=== PATIENT | female | born 1985 | race Native Hawaiian/Other Pacific Islander ===

== ENCOUNTER 2016-10-17 18:00 | Observation (INO) | payer MEDICAID, OTHER ==
--- NOTE | 2016-10-17 18:46 | C.PDOC ---
History Of Present Illness 30 y/o female presents to the ED with complains of possible seizure. Pt with history or seizure disorder and schizophrenia. Pt was on bus going home, told person sitting next to her that she might have a seizure. The e business manager also reports she may have had a seizure but is unsure. Pt doesn't know if she had a seizure. Denies incontinence, fever, URI symptoms, vomiting, change in appetite , or any other complaints. Denies post ictal symptoms. Pt currently takes trileptal and phenobarbital and is compliant with medication. According to her mother patient recalled being on the bus and then was in the ED but does not remember the transport. She is awake and oriented on exam. Time Seen by Provider: 10/17/16 18:33 Chief Complaint (Nursing): Seizure History Per: Patient History/Exam Limitations: no limitations Recent Seizure Activity Began: Unknown Length Of Seizures (Duration): Unknown Post-ictal Period: No Recent travel outside of the [place]: No Past Medical History Reviewed: Historical Data, Nursing Documentation, Vital Signs Vital Signs: Last Vital Signs Temp 98 F 10/17/16 18:11 Pulse 83 10/17/16 18:11 Resp 16 10/17/16 18:11 BP 129/81 10/17/16 18:11 Pulse Ox 98 10/17/16 18:50 - Medical History PMH: Seizures Family History: States: Unknown Family Hx - Social History Hx Alcohol Use: No Hx Substance Use: No Review Of Systems Except As Marked, All Systems Reviewed And Found Negative. Constitutional: Negative for: Fever Cardiovascular: Negative for: Chest Pain Respiratory: Negative for: Cough, Shortness of Breath Gastrointestinal: Negative for: Vomiting, Abdominal Pain Neurological: Negative for: Headache Physical Exam - Physical Exam Appears: Non-toxic, No Acute Distress Skin: Warm, Dry, No Rash Head: Atraumatic, Normacephalic Eye(s): bilateral: PERRL Nose: Normal Oral Mucosa: Moist Tongue: Normal Appearing, No Bite Lips: Normal Appearing Neck: Normal ROM, Supple Chest: Symmetrical Cardiovascular: Rhythm Regular, No Murmur Respiratory: Normal Breath Sounds, No Rales, No Rhonchi, No Wheezing Gastrointestinal/Abdominal: Normal Exam, Soft, No Tenderness Extremity: Bilateral: Atraumatic Neurological/Psych: Oriented x3, Normal Speech, Normal Cognition, Normal Cranial Nerves, Normal Motor, Normal Sensation ED Course And Treatment - Laboratory Results Result Diagrams: 10/17/16 19:06 10/17/16 19:06 Lab Interpretation: No Acute Changes O2 Sat by Pulse Oximetry: 98 (on room air) Pulse Ox Interpretation: Normal Progress Note: 8:45 Patient was in the bathroom with her mother when she had another siezure. Generalized tonic/clonic muscle twitching with altered mentation and frothing at the mouth.Lasted 30 seconds with patient immediately awake. Still slightly twitching. - Physician Consult Information Time Consulting Physician Contacted: 21:03 Physician Contacted: Robin Toure Outcome Of Conversation: Patient will be admitted for evaluation of recurrent seizure. Disposition - Disposition Disposition: HOSPITALIZED Disposition Time: 21:04 Condition: STABLE - POA Present On Arrival: None - Clinical Impression Clinical Impression: Seizure disorder - Scribe Statement The provider has reviewed the documentation as recorded by the Jr Rob Provider Attestation: All medical record entries made by the Jr were at my direction and personally dictated by me. I have reviewed the chart and agree that the record accurately reflects my personal performance of the history, physical exam, medical decision making, and the department course for this patient. I have also personally directed, reviewed, and agree with the discharge instructions and disposition.
[2016-10-17 19:17] LABS: BASO # 0.1 K/uL (0.0-0.2); BASO % 0.8 % (0.0-2.0); EOS % 0.7 % (0.0-4.0); HEMATOCRIT 41.4 % (34.0-47.0); LYMPH # 1.8 K/uL (1.0-4.3); LYMPH % 26.3 % (20.0-40.0); MEAN CELL VOLUME 88.8 fL (81.0-99.0); MEAN CORPUSCULAR HEMOGLOBIN 30.4 pg (27.0-31.0); MEAN CORPUSCULAR HGB CONC 34.3 g/dL (33.0-37.0); MONO # 0.5 K/uL (0.0-0.8); MONO % 6.8 % (0.0-10.0); RED CELL DISTRIBUTION WIDTH 12.1 % (11.5-14.5); WHITE BLOOD COUNT 6.8 K/uL (4.8-10.8)
[2016-10-17 19:27] LABS: CHLORIDE 97 mmol/L (98-107)
[2016-10-17 19:28] LABS: POTASSIUM 4.8 mmol/L (3.6-5.2); SODIUM 134 mmol/L (132-148)
[2016-10-17 19:30] LABS: ALB/GLOB RATIO 1.3 (1.0-2.1); ALKALINE PHOSPHATASE 71 U/L (38-126); ALT/SGPT 29 U/L (9-52); AST/SGOT 35 U/L (14-36); BILIRUBIN,TOTAL 0.3 mg/dL (0.2-1.3); BLOOD UREA NITROGEN 15 mg/dL (7-17); CARBON DIOXIDE 25 mmol/L (22-30); GFR AFRICAN-AMERICAN > 60
[2016-10-17 19:31] LABS: CALCIUM 8.9 mg/dl (8.6-10.4); GLUCOSE,RANDOM 93 mg/dL (65-105)
--- NOTE | 2016-10-17 21:44 | CP.PCM.HP ---
<Osiris Lorna LOZANO - Last Filed: 10/17/16 22:14> History of Present Illness - History of Present Illness History of Present Illness: Patient is a 30 year old female with past medical history of schizophrenia and epilepsy who presents to the ER s/p witnessed seizure. Patient's mother provides history and states that the patient was on the adult day care bus when she experiences her usual pre-seizure aura and informed the business services assistant she was going to have a seizure. Mother states that patient's seizures usually involve her becoming very stiff, occasional tongue biting, but that the patient does not normally have bowel or bladder incontinence. For this particular seizure, the patient did not bite her tongue. Patient had another seizure in the ER where again she did not bite her tongue but her whole body became very stiff. Patient was in the bathroom with her mother at the time of that seizure. Patient's mother helped patient to floor and ER staff transferred patient to stretcher where she had seizure activity described as tonic clonic with foaming at the mouth. Patient' mother states they are very compliant with medication. Patient formerly had 16 seizures per month but two months ago the patient's phenobarbital was increased to twice daily dosing instead of once per day. Since that medication change, the patient has only had 3-5 seizures per month. Patient's mother states that usually the seizures occur at home and she does not go to the hospital. Patient does have history of falls and injuries associated with the seizures. Patient currently alert and denies headache, dizziness, nausea, vomiting. PMD: [facility] specialist Dr. 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, history normal MRI per mother Meds: vimpat 200mg BID (non-formulary here-mother will bring in AM as pt had evening dose already), seroquel 200mg HS, phenobarbital 60mg BID, trileptal 600mg AM, trileptal 300mg PM, Nuedexta in AM PSHx: D&C for termination of while patient was on depakote Famhx: maternal grandmother with diabetes, maternal grandfather with pulmonary problem SocialHx: denies tobacco, alcohol, drugs, lives with mother, attends adult day care Present on Admission - Present on Admission Any Indicators Present on Admission: No Review of Systems - Constitutional Constitutional: absent: Chills, Fever, Weakness - EENT Nose/Mouth/Throat: absent: Sore Throat - Cardiovascular Cardiovascular: absent: Chest Pain, Chest Pain at Rest, Dyspnea - Respiratory Respiratory: absent: Cough, Dyspnea - Gastrointestinal Gastrointestinal: absent: Abdominal Pain, Constipation, Diarrhea, Fecal Incontinence, Nausea, Vomiting - Genitourinary Genitourinary: absent: Dysuria, Urinary Incontinence - Reproductive: Female Additional comments: LMP 10/03/16 - Musculoskeletal Musculoskeletal: absent: Back Pain - Integumentary Integumentary: absent: Rash - Neurological Neurological: Convulsions. absent: Dizziness, Headaches Past Patient History - Past Social History Smoking Status: Never Smoked - NEUROLOGICAL Hx Seizures: Yes - PSYCHIATRIC Hx Substance Use: No - ANESTHESIA Hx Anesthesia: No Meds Allergies/Adverse Reactions: Allergies Allergy/AdvReac Type Severity Reaction Status Date / Time No Known Allergies Allergy Verified 10/17/16 18:16 Physical Exam - Constitutional Appears: Non-toxic, No Acute Distress - Head Exam Head Exam: NORMOCEPHALIC Additional comments: healed scars on forehead from old injuries - Eye Exam Eye Exam: EOMI, Normal appearance. absent: Nystagmus - ENT Exam ENT Exam: Mucous Membranes Moist Additional comments: no tongue lesions - Neck Exam Neck exam: Negative for: Lymphadenopathy - Respiratory Exam Respiratory Exam: Clear to Auscultation Bilateral. absent: Rales, Rhonchi, Wheezes - Cardiovascular Exam Cardiovascular Exam: +S1, +S2 - GI/Abdominal Exam GI & Abdominal Exam: Normal Bowel Sounds, Soft. absent: Distended, Firm, Guarding, Tenderness - Extremities Exam Extremities exam: Positive for: normal inspection. Negative for: pedal edema - Neurological Exam Neurological exam: Alert, CN II-XII Intact - Skin Skin Exam: Normal Color, Warm Results - Vital Signs Recent Vital Signs: Last Vital Signs Temp 98 F 10/17/16 18:11 Pulse 83 10/17/16 18:11 Resp 16 10/17/16 18:11 BP 129/81 10/17/16 18:11 Pulse Ox 98 10/17/16 21:05 - Labs Result Diagrams: 10/17/16 19:06 10/17/16 19:06 Assessment & Plan (1) Seizure disorder Assessment and Plan: Patient to continue home medications: Vimpat 200mg BID Phenobarbital 60mg BID Trileptal 600mg QAM Trileptal 300mg QPM seizure precautions F/U phenobarbital level Status: Acute (2) Schizophrenia Assessment and Plan: Seroquel 200mg HS Nuedexta 20/10 daily Status: Acute (3) Prophylactic measure Assessment and Plan: SCDs seizure precautions pad bed to prevent seizure-related injury monitor on telemetry for unusual activity to indicate seizure Patient seen and examined with attending physician, plan as per attending physician Status: Acute <Robin Toure P - Last Filed: 10/21/16 20:24> Results - Vital Signs Recent Vital Signs: Last Vital Signs Temp 97.9 F 10/19/16 13:00 Pulse 71 10/19/16 13:00 Resp 18 10/19/16 13:00 BP 118/76 10/19/16 13:00 Pulse Ox 96 10/19/16 13:00 - Labs Result Diagrams: 10/19/16 11:04 10/19/16 11:04 Attending/Attestation - Attestation I have personally seen and examined this patient.: Yes I have fully participated in the care of the patient.: Yes I have reviewed all pertinent clinical information: Yes
[2016-10-18 07:32] LABS: BASO % 0.7 % (0.0-2.0); EOS # 0.1 K/uL (0.0-0.7); EOS % 0.8 % (0.0-4.0); LYMPH # 2.1 K/uL (1.0-4.3); LYMPH % 33.5 % (20.0-40.0); MEAN CELL VOLUME 89.1 fL (81.0-99.0); MEAN CORPUSCULAR HEMOGLOBIN 29.6 pg (27.0-31.0); MEAN CORPUSCULAR HGB CONC 33.2 g/dL (33.0-37.0); MEAN PLATELET VOLUME 7.2 fL (7.2-11.7); MONO # 0.5 K/uL (0.0-0.8); MONO % 7.6 % (0.0-10.0); NRBC % 0.2 % (0.0-2.0); RED CELL DISTRIBUTION WIDTH 12.3 % (11.5-14.5); WHITE BLOOD COUNT 6.4 K/uL (4.8-10.8)
[2016-10-18 07:34] LABS: CHLORIDE 100 mmol/L (98-107); POTASSIUM 3.8 mmol/L (3.6-5.2); SODIUM 136 mmol/L (132-148)
[2016-10-18 07:36] LABS: GFR AFRICAN-AMERICAN > 60
[2016-10-18 07:37] LABS: ALB/GLOB RATIO 1.3 (1.0-2.1); ALKALINE PHOSPHATASE 72 U/L (38-126); ALT/SGPT 18 U/L (9-52); AST/SGOT 20 U/L (14-36); BILIRUBIN,TOTAL 0.5 mg/dL (0.2-1.3); BLOOD UREA NITROGEN 13 mg/dL (7-17); CALCIUM 8.4 mg/dl (8.6-10.4); CARBON DIOXIDE 24 mmol/L (22-30); GLUCOSE,RANDOM 85 mg/dL (65-105); TOTAL PROTEIN 7.5 g/dL (6.3-8.3)
[2016-10-18] MEDS ORDERED: Patient's Own Medication - Tablet/Capusle PO SCH (09:00)
[2016-10-18] MEDS ORDERED: NUEDEXTA PO SCH (10:00)
--- NOTE | 2016-10-18 14:04 | CP.PCM.PN ---
<Henry Britton - Last Filed: 10/18/16 14:41> Subjective - Date & Time of Evaluation Date of Evaluation: 10/18/16 Time of Evaluation: 07:00 - Subjective Subjective: PGY-1 Medicine Progress Note for Dr. clayton Patient seen and examined at bedside. This morning, mother stated patient had seizure in bed. Patient was AAO x 3 with no post-ictal state upon interview/ exam. Patient stated that she has had seizure daily for last few days. Patient sees Epileptologist, Dr. Cifuentes, as outpaitent ([phone]). Patient also complaining of infiltrated IV, nursing aware. Denied fever/chills, post-ictal symptoms, tongue lesions, new skin lesions, cp, sob, palpitations, abd pain, n/v /d. Objective - Vital Signs/Intake and Output Vital Signs (last 24 hours): Temp Pulse Resp BP Pulse Ox 98.9 F 68 18 120/77 97 10/18/16 10:05 10/18/16 10:05 10/18/16 10:05 10/18/16 10:05 10/18/16 10:05 - Medications Medications: Current Medications Home Med (Nuedexta 20-10 Mg Capsule) 1 tab PO DAILY [facility] Home Med (Patient's Own Medication) 1 tab PO Q12H [facility] Lorazepam (Ativan) 2 mg IVP Q6H PRN PRN Reason: Seizure activity Oxcarbazepine (Trileptal) 300 mg PO HS [facility] Oxcarbazepine (Trileptal) 600 mg PO DAILY [facility] Last Admin: 10/18/16 10:48 Dose: 600 mg Phenobarbital (Phenobarbital Tab) 64.8 mg PO BID [facility] Last Admin: 10/18/16 10:48 Dose: 64.8 mg Quetiapine Fumarate (Seroquel) 200 mg PO HS [facility] - Labs Labs: 10/18/16 07:04 10/18/16 07:04 - Constitutional Appears: No Acute Distress - Head Exam Head Exam: NORMOCEPHALIC Additional comments: healed scars on forehead from old injuries - Eye Exam Eye Exam: EOMI, Normal appearance Pupil Exam: PERRL - ENT Exam ENT Exam: Mucous Membranes Moist, Normal Exam - Neck Exam Neck Exam: Normal Inspection - Respiratory Exam Respiratory Exam: Clear to Ausculation Bilateral, NORMAL BREATHING PATTERN - Cardiovascular Exam Cardiovascular Exam: REGULAR RHYTHM, +S1, +S2 - GI/Abdominal Exam GI & Abdominal Exam: Soft, Normal Bowel Sounds. absent: Tenderness - Extremities Exam Extremities Exam: Normal Capillary Refill - Back Exam Back Exam: absent: CVA tenderness (L), CVA tenderness (R) - Neurological Exam Neurological Exam: Alert, Awake, CN II-XII Intact, Oriented x3 Neuro motor strength exam: Left Upper Extremity: 5, Right Upper Extremity: 5, Left Lower Extremity: 5, Right Lower Extremity: 5 - Psychiatric Exam Psychiatric exam: Normal Affect, Normal Mood - Skin Skin Exam: Dry, Intact, Warm Assessment and Plan - Assessment and Plan (Free Text) Plan: (1) Seizure disorder Assessment and Plan: Ativan 2 mg IVP Q6H PRN Neuro consult, Dr. Cheung, help appreciated (requested by family) Vimpat 200 mg PO BID Phenobarbital 60 mg PO BID Trileptal 600 mg PO QAM Trileptal 300mg PO QPM seizure precautions F/U phenobarbital level (2) Schizophrenia Assessment and Plan: Seroquel 200 mg PO HS Nuedexta 20/10 mg PO daily (3) Prophylactic measure Assessment and Plan: SCDs seizure precautions pad bed to prevent seizure-related injury monitor on telemetry for unusual activity to indicate seizure Regular diet <Robin Clayton - Last Filed: 11/21/16 14:50> Objective - Vital Signs/Intake and Output Vital Signs (last 24 hours): Temp Pulse Resp BP Pulse Ox 97.9 F 71 18 118/76 96 10/19/16 13:00 10/19/16 13:00 10/19/16 13:00 10/19/16 13:00 10/19/16 13:00 - Labs Labs: 10/19/16 11:04 10/19/16 11:04 Attending/Attestation - Attestation I have personally seen and examined this patient.: Yes I have fully participated in the care of the patient.: Yes I have reviewed all pertinent clinical information, including history, physical exam and plan: Yes Notes (Text): Patient seen and examined with the resident. Agree with the resident's evaluation, assessment and plan. Seizure disorder Schizophrenia
[2016-10-19 09:00] VITALS: O2SAT 96
[2016-10-19 11:12] LABS: BASO % 0.7 % (0.0-2.0); EOS % 0.5 % (0.0-4.0); HEMATOCRIT 44.8 % (34.0-47.0); LYMPH % 36.2 % (20.0-40.0); MEAN CORPUSCULAR HEMOGLOBIN 29.9 pg (27.0-31.0); MEAN CORPUSCULAR HGB CONC 33.6 g/dL (33.0-37.0); MONO # 0.4 K/uL (0.0-0.8); NRBC % 0.1 % (0.0-2.0); RED CELL DISTRIBUTION WIDTH 12.1 % (11.5-14.5); WHITE BLOOD COUNT 5.6 K/uL (4.8-10.8)
[2016-10-19 11:27] LABS: CHLORIDE 101 mmol/L (98-107)
[2016-10-19 11:28] LABS: POTASSIUM 4.1 mmol/L (3.6-5.2); SODIUM 138 mmol/L (132-148)
[2016-10-19 11:30] LABS: ALB/GLOB RATIO 1.2 (1.0-2.1); ALKALINE PHOSPHATASE 75 U/L (38-126); AST/SGOT 24 U/L (14-36); BILIRUBIN,TOTAL 0.5 mg/dL (0.2-1.3); BLOOD UREA NITROGEN 16 mg/dL (7-17); CARBON DIOXIDE 26 mmol/L (22-30); GFR AFRICAN-AMERICAN > 60
[2016-10-19 11:31] LABS: ALT/SGPT 21 U/L (9-52); CALCIUM 8.8 mg/dl (8.6-10.4); GLUCOSE,RANDOM 85 mg/dL (65-105)
[2016-10-19] MEDS ORDERED: [UNRECOGNIZED DRUG - OTHER] PO SCH (13:00)
[2016-10-19] MEDS ORDERED: DEXTROMETHORPHAN PO SCH (13:00)
[2016-10-19] MEDS ORDERED: QUINIDINE PO SCH (13:00)
[2016-10-19] MEDS ORDERED: VIMPAT 200 MG PO SCH ×2 (13:00→18:00)
[2016-10-19 13:30] VITALS: BP 118/76; PULSE 71; RESP 18; TEMP 97.9
--- NOTE | 2016-10-19 13:38 | CP.PCM.DIS ---
<Henry Britton - Last Filed: 12/05/16 07:29> Provider - Provider Date of Admission: 10/17/16 21:05 Attending physician: Robin Toure MD Time Spent in preparation of Discharge (in minutes): 40 Diagnosis - Discharge Diagnosis (1) Seizure disorder Status: Chronic (2) Schizophrenia Status: Chronic Hospital Course - Lab Results Lab Results: Most Recent Lab Values WBC 5.6 K/uL (4.8-10.8) 10/19/16 11:04 RBC 5.04 Mil/uL (3.80-5.20) 10/19/16 11:04 Hgb 15.1 g/dL (11.0-16.0) 10/19/16 11:04 Hct 44.8 % (34.0-47.0) 10/19/16 11:04 MCV 89.0 fL (81.0-99.0) 10/19/16 11:04 MCH 29.9 pg (27.0-31.0) 10/19/16 11:04 MCHC 33.6 g/dL (33.0-37.0) 10/19/16 11:04 RDW 12.1 % (11.5-14.5) 10/19/16 11:04 Plt Count 309 K/uL (130-400) 10/19/16 11:04 MPV 7.0 fL (7.2-11.7) L 10/19/16 11:04 Neut % (Auto) 55.6 % (50.0-75.0) 10/19/16 11:04 Lymph % (Auto) 36.2 % (20.0-40.0) 10/19/16 11:04 Morrison % (Auto) 7.0 % (0.0-10.0) 10/19/16 11:04 Eos % (Auto) 0.5 % (0.0-4.0) 10/19/16 11:04 Baso % (Auto) 0.7 % (0.0-2.0) 10/19/16 11:04 Neut # 3.1 K/uL (1.8-7.0) 10/19/16 11:04 Lymph # 2.0 K/uL (1.0-4.3) 10/19/16 11:04 Morrison # 0.4 K/uL (0.0-0.8) 10/19/16 11:04 Eos # 0.0 K/uL (0.0-0.7) 10/19/16 11:04 Baso # 0.0 K/uL (0.0-0.2) 10/19/16 11:04 Sodium 138 mmol/L (132-148) 10/19/16 11:04 Potassium 4.1 mmol/L (3.6-5.2) 10/19/16 11:04 Chloride 101 mmol/L (98-107) 10/19/16 11:04 Carbon Dioxide 26 mmol/L (22-30) 10/19/16 11:04 Anion Gap 15 (10-20) 10/19/16 11:04 BUN 16 mg/dL (7-17) 10/19/16 11:04 Creatinine 0.7 MG/DL (0.7-1.2) 10/19/16 11:04 Est GFR ( Amer) > 60 10/19/16 11:04 Est GFR (Non-Af Amer) > 60 10/19/16 11:04 Random Glucose 85 mg/dL (65-105) 10/19/16 11:04 Calcium 8.8 mg/dl (8.6-10.4) 10/19/16 11:04 Total Bilirubin 0.5 mg/dL (0.2-1.3) 10/19/16 11:04 AST 24 U/L (14-36) 10/19/16 11:04 ALT 21 U/L (9-52) 10/19/16 11:04 Alkaline Phosphatase 75 U/L (38-126) 10/19/16 11:04 Total Protein 8.0 g/dL (6.3-8.3) 10/19/16 11:04 Albumin 4.4 g/dL (3.5-5.0) 10/19/16 11:04 Globulin 3.6 gm/dL (2.2-3.9) 10/19/16 11:04 Albumin/Globulin Ratio 1.2 (1.0-2.1) 10/19/16 11:04 Phenobarbital 20.5 mg/L (15.0-40.0) 10/17/16 19:06 - Hospital Course Hospital Course: 30 year old female with past medical history of schizophrenia and epilepsy who presents to the ER s/p witnessed seizure. Patient's mother provides history and states that the patient was on the adult day care bus when she experiences her usual pre-seizure aura and informed the bus driver/monitor she was going to have a seizure. Mother states that patient's seizures usually involve her becoming very stiff, occasional tongue biting, but that the patient does not normally have bowel or bladder incontinence. For this particular seizure, the patient did not bite her tongue. Patient had another seizure in the ER where again she did not bite her tongue but her whole body became very stiff. Patient was in the bathroom with her mother at the time of that seizure. Patient's mother helped patient to floor and ER staff transferred patient to stretcher where she had seizure activity described as tonic clonic with foaming at the mouth. Patient' mother states they are very compliant with medication. Patient formerly had 16 seizures per month but two months ago the patient's phenobarbital was increased to twice daily dosing instead of once per day. Since that medication change, the patient has only had 3-5 seizures per month. Patient's mother states that usually the seizures occur at home and she does not go to the hospital. Patient does have history of falls and injuries associated with the seizures. Patient currently alert and denies headache, dizziness, nausea, vomiting. Patient was admitted to telemetry for seizures. Patient's home medications was restarted and placed on seizure precautions. The next day, Neurology was consulted and Ativan was ordered as needed. The patient's mother was requesting the patient to be disordered after asking for a neurology consult. Patient was kept one more day. Patient did not display any seizure activity in the hospital. She was then deemed medically stable for discharge by Dr. Ambrocio. Patient was instructed to continue home medications as previously prescribed and follow up with her Epileptologist, Dr. Cifuentes, as outpaitent. (This is a summary of the hospital course. Please refer to EMR for more details. ) Discharge Exam - Head Exam Head Exam: ATRAUMATIC, NORMOCEPHALIC - Eye Exam Eye Exam: EOMI, Normal appearance Pupil Exam: PERRL - ENT Exam ENT Exam: Mucous Membranes Moist - Respiratory Exam Respiratory Exam: Clear to PA & Lateral, NORMAL BREATHING PATTERN - Cardiovascular Exam Cardiovascular Exam: REGULAR RHYTHM, +S1, +S2 - GI/Abdominal Exam GI & Abdominal Exam: Normal Bowel Sounds, Soft. absent: Tenderness - Extremities Exam Extremities exam: normal capillary refill, pedal pulses present - Back Exam Back exam: absent: CVA tenderness (L), CVA tenderness (R) - Neurological Exam Neurological exam: Alert, CN II-XII Intact, Oriented x3 - Psychiatric Exam Psychiatric exam: Normal Affect, Normal Mood - Skin Skin Exam: Dry, Intact, Normal Color, Warm Discharge Plan - Follow Up Plan Condition: STABLE Disposition: HOME/ ROUTINE Instructions: Recurrent Seizures in Adults (DC) Additional Instructions: Patient medically stable for discharge by Dr. Reyes. Patient is to resume home medications as previously prescribed. Patient is to follow up with PMD and Neurologist (Dr. Cifuentes) within 2-3 days of discharge. Patient may resume physical activity as tolerated. Please return to ED if symptoms persist or condition worsens. All instructions stated above were discussed with patient in detail. She verbalized understanding and agreement. <Robin Ambrocio - Last Filed: 12/05/16 10:53> Provider - Provider Date of Admission: 10/17/16 21:05 Attending physician: Robin Toure MD Hospital Course - Lab Results Lab Results: Most Recent Lab Values WBC 5.6 K/uL (4.8-10.8) 10/19/16 11:04 RBC 5.04 Mil/uL (3.80-5.20) 10/19/16 11:04 Hgb 15.1 g/dL (11.0-16.0) 10/19/16 11:04 Hct 44.8 % (34.0-47.0) 10/19/16 11:04 MCV 89.0 fL (81.0-99.0) 10/19/16 11:04 MCH 29.9 pg (27.0-31.0) 10/19/16 11:04 MCHC 33.6 g/dL (33.0-37.0) 10/19/16 11:04 RDW 12.1 % (11.5-14.5) 10/19/16 11:04 Plt Count 309 K/uL (130-400) 10/19/16 11:04 MPV 7.0 fL (7.2-11.7) L 10/19/16 11:04 Neut % (Auto) 55.6 % (50.0-75.0) 10/19/16 11:04 Lymph % (Auto) 36.2 % (20.0-40.0) 10/19/16 11:04 Morrison % (Auto) 7.0 % (0.0-10.0) 10/19/16 11:04 Eos % (Auto) 0.5 % (0.0-4.0) 10/19/16 11:04 Baso % (Auto) 0.7 % (0.0-2.0) 10/19/16 11:04 Neut # 3.1 K/uL (1.8-7.0) 10/19/16 11:04 Lymph # 2.0 K/uL (1.0-4.3) 10/19/16 11:04 Morrison # 0.4 K/uL (0.0-0.8) 10/19/16 11:04 Eos # 0.0 K/uL (0.0-0.7) 10/19/16 11:04 Baso # 0.0 K/uL (0.0-0.2) 10/19/16 11:04 Sodium 138 mmol/L (132-148) 10/19/16 11:04 Potassium 4.1 mmol/L (3.6-5.2) 10/19/16 11:04 Chloride 101 mmol/L (98-107) 10/19/16 11:04 Carbon Dioxide 26 mmol/L (22-30) 10/19/16 11:04 Anion Gap 15 (10-20) 10/19/16 11:04 BUN 16 mg/dL (7-17) 10/19/16 11:04 Creatinine 0.7 MG/DL (0.7-1.2) 10/19/16 11:04 Est GFR ( Amer) > 60 10/19/16 11:04 Est GFR (Non-Af Amer) > 60 10/19/16 11:04 Random Glucose 85 mg/dL (65-105) 10/19/16 11:04 Calcium 8.8 mg/dl (8.6-10.4) 10/19/16 11:04 Total Bilirubin 0.5 mg/dL (0.2-1.3) 10/19/16 11:04 AST 24 U/L (14-36) 10/19/16 11:04 ALT 21 U/L (9-52) 10/19/16 11:04 Alkaline Phosphatase 75 U/L (38-126) 10/19/16 11:04 Total Protein 8.0 g/dL (6.3-8.3) 10/19/16 11:04 Albumin 4.4 g/dL (3.5-5.0) 10/19/16 11:04 Globulin 3.6 gm/dL (2.2-3.9) 10/19/16 11:04 Albumin/Globulin Ratio 1.2 (1.0-2.1) 10/19/16 11:04 Phenobarbital 20.5 mg/L (15.0-40.0) 10/17/16 19:06 Attending/Attestation - Attestation I have personally seen and examined this patient.: Yes I have fully participated in the care of the patient.: Yes I have reviewed all pertinent clinical information, including history, physical exam and plan: Yes Notes (Text): Patient was admitted to telemetry for seizures. Patient's home medications was restarted and placed on seizure precautions. The next day, Neurology was consulted and Ativan was ordered as needed. The patient's mother was requesting the patient to be discharged after asking for a neurology consult. Patient was kept one more day. Patient did not display any seizure activity in the hospital. She was then deemed medically stable. Patient was instructed to continue home medications as previously prescribed and follow up with her Epileptologist, Dr. Cifuentes, as outpaitent.
[2016-10-20] MEDS ORDERED: [UNRECOGNIZED DRUG - OTHER] PO SCH (10:00)
[2016-10-20] MEDS ORDERED: QUINIDINE PO SCH (10:00)
[2016-10-20] MEDS ORDERED: DEXTROMETHORPHAN PO SCH (10:00)
--- NOTE | 2016-10-23 09:50 | EEG ---
DATE: 10/18/2016 The record is obtained for a history of seizure disorder. The record was obtained while the patient was awake, drowsy, and asleep. The record was symmetrically equal on both sides with a velocity of 8 cycles per second. Waves are fairly formed, fairly organized with a posterior distribution, moderat e in amplitude, reactive to eye opening by attenuation. There were no abnormal discharges. No spike , no polyspike, no sharp wave, no focal slowing, paroxysmal discharge. The record showed periods of drowsiness during which attenuation and slowing of the record were seen and theta waves were seen. T here are periods of sleep during which delta waves were seen. There were eye movement artifacts, lupe ctrode artifact, and muscle movement artifacts. There were no changes with photic stimulation. The hyperventilation was omitted. In sum, this is a normal awake, drowsy and asleep EEG. Clinical correlation is recommended. Miquel Lopez MD cc: [id number] TT: 10/23/2016 09:49:54 Confirmation # [id number] Dictation # [id number] tn
== END 2016-10-19 16:30 | disposition home or self-care (01) ==
LOC: C.ER 18:00 → C.9E 21:05 → C.6T 10-18 00:01
PROVIDERS: ADMIT Internal Medicine; ATTEND Internal Medicine
DX: G40.901 Epilepsy, unspecified, not intractable, with status epilepticus (principal); F20.9 Schizophrenia, unspecified; Z91.81 History of falling
CPT/HCPCS: 36415; 80053; 80184; 85025; 95812; 96374; 99285; G0378; J2060

== ENCOUNTER 2016-11-02 18:05 | Emergency (ER) | payer MEDICAID, OTHER ==
[2016-11-02 18:23] VITALS: BP 121/82; PULSE 76; RESP 18; TEMP 98.4; O2SAT 99
--- NOTE | 2016-11-02 19:21 | C.PDOC ---
History Of Present Illness 30 year old female with a PMHx of schizophrenia and seizure disorder BIBA for evaluation of feeling an impending seizure while at adult daycare. Patient's mother currently at bedside, states patient tales Trileptal and typically has severl seizures around the time of her menses. Patient has been complaint with her medication, and has epileptologist Dr. Galdamez. Patient has no current physical complaints. Time Seen by Provider: 11/02/16 19:13 Chief Complaint (Nursing): Seizure History Per: Family (Mother) History/Exam Limitations: other (schizophrenia, poor historian) Precipitating Factor(s): Other (menses) Associated Symptoms: Other (Asymptomatic) Severity: None Past Medical History Reviewed: Historical Data, Nursing Documentation, Vital Signs Vital Signs: Last Vital Signs Temp 98.4 F 11/02/16 18:20 Pulse 76 11/02/16 18:20 Resp 18 11/02/16 18:20 BP 121/82 11/02/16 18:20 Pulse Ox 99 11/02/16 19:39 - Medical History PMH: Schizophrenia, Seizures Surgical History: No Surg Hx Family History: States: No Known Family Hx - Social History Hx Alcohol Use: No Hx Substance Use: No Review Of Systems Except As Marked, All Systems Reviewed And Found Negative. Constitutional: Negative for: Fever, Chills Cardiovascular: Negative for: Chest Pain, Palpitations Respiratory: Negative for: Cough, Shortness of Breath Gastrointestinal: Negative for: Nausea, Vomiting, Abdominal Pain, Diarrhea Neurological: Negative for: Seizures, Headache, Dizziness Physical Exam - Physical Exam Appears: Well, Non-toxic, Other (Bizarre affect) Skin: Normal Color, Warm, Dry Head: Atraumatic, Normacephalic Eye(s): bilateral: Normal Inspection, PERRL, EOMI Oral Mucosa: Moist Chest: Symmetrical, No Tenderness Cardiovascular: Rhythm Regular Respiratory: Normal Breath Sounds, No Rales, No Rhonchi, No Wheezing Gastrointestinal/Abdominal: Normal Exam, Bowel Sounds, Soft, No Tenderness Extremity: Bilateral: Atraumatic, Normal Color And Temperature, Normal ROM Neurological/Psych: Oriented x3, Other (Awake, alert, and oriented) ED Course And Treatment O2 Sat by Pulse Oximetry: 99 (Room air) Pulse Ox Interpretation: Normal Progress Note: Mother would like to take patient home, states this is her baseline mental status. Accucheck WNL. Patient did not have seizure to our knoledge, and she has neurologist she can follow up with, and has seizure medications she is compliant with. Mother instructed to follow up with neurology within 1 week, and understands she should bring patient back to ED if she develops any concerning symptoms. Reevaluation Time: 19:25 Reassessment Condition: Improved Disposition Counseled Patient/Family Regarding: Studies Performed, Diagnosis, Need For Followup - Disposition Disposition: HOME/ ROUTINE Disposition Time: 19:25 Condition: STABLE Additional Instructions: FOLLOW UP WITH YOUR NEUROLOGIST WITHIN 1 WEEK CONTINUE MEDICATIONS DIRECTED RETURN TO ER IF SYMPTOMS WORSEN Instructions: Epilepsy (ED) Print Language: KYRGYZ - POA Present On Arrival: None - Clinical Impression Clinical Impression: Seizure disorder, Schizophrenia - Scribe Statement The provider has reviewed the documentation as recorded by the Philibsandra Cota All medical record entries made by the Philibsandra were at my direction and personally dictated by me. I have reviewed the chart and agree that the record accurately reflects my personal performance of the history, physical exam, medical decision making, and the department course for this patient. I have also personally directed, reviewed, and agree with the discharge instructions and disposition.
== END 2016-11-02 19:25 | disposition home or self-care (01) ==
LOC: C.ER 18:05
DX: G40.909 Epilepsy, unspecified, not intractable, without status epilepticus (principal); F20.9 Schizophrenia, unspecified

== ENCOUNTER 2017-01-16 16:44 | Observation (INO) | payer MEDICAID, OTHER ==
[2017-01-16 17:50] LABS: BASO % 0.9 % (0.0-2.0); EOS % 0.6 % (0.0-4.0); HEMOGLOBIN 13.7 g/dL (11.0-16.0); LYMPH # 1.8 K/uL (1.0-4.3); LYMPH % 35.2 % (20.0-40.0); MEAN CELL VOLUME 88.9 fL (81.0-99.0); MEAN CORPUSCULAR HGB CONC 33.8 g/dL (33.0-37.0); MEAN PLATELET VOLUME 6.9 fL (7.2-11.7); MONO # 0.4 K/uL (0.0-0.8); MONO % 7.1 % (0.0-10.0); NEUT # 2.8 K/uL (1.8-7.0); NEUT % 56.2 % (50.0-75.0); RBC 4.56 Mil/uL (3.80-5.20); RED CELL DISTRIBUTION WIDTH 12.8 % (11.5-14.5)
[2017-01-16 18:00] LABS: ALBUMIN 4.2 g/dL (3.5-5.0)
[2017-01-16 18:03] LABS: ALB/GLOB RATIO 1.3 (1.0-2.1); ALT/SGPT 30 U/L (9-52); AST/SGOT 21 U/L (14-36); BLOOD UREA NITROGEN 10 mg/dL (7-17); CALCIUM 8.2 mg/dl (8.6-10.4); GFR AFRICAN-AMERICAN > 60; GFR NON-AFRICAN AMERICAN > 60
--- NOTE | 2017-01-16 19:26 | C.PDOC ---
History Of Present Illness Patient is a 31 y/o female, whose PMHx includes seizures, schizophrenia, presents to the ED s/p witnessed seizure at PMD office. Mother notes seizure lasted for 2 minutes, and patient remained confused for about 20 minutes. Mother states patient had a blank stare at the clinic during the onset of seizure. As per mother, patient used to have 16 seizures per month, but has now decreased to 4 seizures a month after changing her meds. Otherwise, denies any headache, dizziness, or any other associated symptoms at this time. Time Seen by Provider: 01/16/17 16:54 Chief Complaint (Nursing): Seizure History Per: Patient History/Exam Limitations: no limitations Severity: None Pain Scale Rating Of: 0 Recent travel outside of the [place]: No Additional History Per: Patient Past Medical History Reviewed: Historical Data, Nursing Documentation, Vital Signs Vital Signs: Last Vital Signs Temp 98.1 F 01/16/17 22:44 Pulse 56 L 01/16/17 22:44 Resp 18 01/16/17 22:44 BP 109/72 01/16/17 22:44 Pulse Ox 98 01/16/17 22:44 - Medical History PMH: Schizophrenia, Seizures Denies: Chronic Kidney Disease Family History: States: Unknown Family Hx - Social History Hx Alcohol Use: No Hx Substance Use: No Review Of Systems Except As Marked, All Systems Reviewed And Found Negative. Constitutional: Negative for: Fever, Chills Cardiovascular: Negative for: Chest Pain, Palpitations Respiratory: Negative for: Shortness of Breath Gastrointestinal: Negative for: Nausea, Vomiting, Abdominal Pain Neurological: Positive for: Seizures. Negative for: Weakness, Numbness, Headache, Dizziness Physical Exam - Physical Exam Appears: Non-toxic, No Acute Distress Skin: Normal Color, Warm, Dry Head: Atraumatic, Normacephalic Eye(s): bilateral: Normal Inspection Neck: Normal ROM, Supple Chest: Symmetrical Cardiovascular: Rhythm Regular, No Murmur Respiratory: Normal Breath Sounds, No Rales, No Rhonchi, No Wheezing Gastrointestinal/Abdominal: Soft, No Tenderness Extremity: Normal ROM Extremity: Bilateral: Atraumatic Neurological/Psych: Oriented x3, Normal Speech, Normal Cognition, No Other (no focal deficits) ED Course And Treatment - Laboratory Results Result Diagrams: 01/16/17 17:51 01/16/17 17:46 Lab Interpretation: No Acute Changes O2 Sat by Pulse Oximetry: 99 (on RA) Pulse Ox Interpretation: Normal Progress Note: Blood work, urinalysis ordered and reviewed. - Physician Consult Information Outcome Of Conversation: Case discussed with patient neurologist Dr Holland. he is requesting levels of anti-epileptics and EEG. Patient to be admitted to Dr Conner for observation and treatment. Disposition - Disposition Disposition: HOSPITALIZED Disposition Time: 21:45 Condition: IMPROVED - Clinical Impression Clinical Impression: Seizure disorder, Schizophrenia - Scribe Statement The provider has reviewed the documentation as recorded by the Philibsandra Fuentes All medical record entries made by the Philibsandar were at my direction and personally dictated by me. I have reviewed the chart and agree that the record accurately reflects my personal performance of the history, physical exam, medical decision making, and the department course for this patient. I have also personally directed, reviewed, and agree with the discharge instructions and disposition.
[2017-01-16 19:38] LABS: SQUAMOUS EPITHIAL 5 /hpf (0-5); URINE BACTERIA OCC (<OCC); URINE BILIRUBIN NEGATIVE (NEGATIVE); URINE BLOOD 3+ (NEGATIVE); URINE COLOR Straw (YELLOW); URINE GLUCOSE (UA) NORMAL (Normal); URINE LEUKOCYTE ESTERASE 2+ Leu/uL (Negative); URINE NITRATE NEGATIVE (NEGATIVE); URINE PROTEIN NEGATIVE (NEGATIVE); URINE UROBILINOGEN NORMAL mg/dL (0.2-1.0)
[2017-01-16 19:39] LABS: URINE CLARITY HAZY (Clear)
[2017-01-16 19:40] LABS: HCG,QUALITATIVE URINE NEGATIVE (NEGATIVE)
[2017-01-16] MEDS ORDERED: LACOSAMIDE 200 MG PO SCH (20:15)
--- NOTE | 2017-01-16 23:54 | CP.PCM.HP ---
History of Present Illness - History of Present Illness History of Present Illness: Patient is a 31 y/o female, whose PMHx includes seizures, schizophrenia, presents to the ED s/p witnessed seizure at PMD office. Mother notes seizure lasted for 2 minutes, and patient remained confused for about 20 minutes. Mother states patient had a blank stare at the clinic during the onset of seizure. As per mother, patient used to have 16 seizures per month, but has now decreased to 4 seizures a month after changing her meds. Otherwise, denies any headache, dizziness, or any other associated symptoms at this time. Past Patient History - Past Medical History & Family History Past Medical History?: Yes - Past Social History Smoking Status: Never Smoked - CARDIAC Hx Cardiac Disorders: No - PULMONARY Hx Respiratory Disorders: No - NEUROLOGICAL Hx Seizures: Yes - HEENT Hx HEENT Problems: No - RENAL Hx Chronic Kidney Disease: No - ENDOCRINE/METABOLIC Hx Endocrine Disorders: No - HEMATOLOGICAL/ONCOLOGICAL Hx Blood Disorders: No - INTEGUMENTARY Hx Dermatological Problems: No - MUSCULOSKELETAL/RHEUMATOLOGICAL Hx Falls: No - GASTROINTESTINAL Hx Gastrointestinal Disorders: No - GENITOURINARY/GYNECOLOGICAL Hx Genitourinary Disorders: No - PSYCHIATRIC Hx Schizophrenia: Yes Hx Substance Use: No - SURGICAL HISTORY Hx Surgeries: No - ANESTHESIA Hx Anesthesia: No Meds Allergies/Adverse Reactions: Allergies Allergy/AdvReac Type Severity Reaction Status Date / Time No Known Allergies Allergy Verified 10/17/16 18:16 Results - Vital Signs Recent Vital Signs: Last Vital Signs Temp 98.1 F 01/16/17 22:44 Pulse 56 L 01/16/17 22:44 Resp 18 01/16/17 22:44 BP 109/72 01/16/17 22:44 Pulse Ox 99 01/16/17 23:23 - Labs Result Diagrams: 01/16/17 17:51 01/16/17 17:46
[2017-01-17 01:26] VITALS: RESP 20
[2017-01-17 08:16] VITALS: O2SAT 99
[2017-01-17] MEDS ORDERED: NUEDEXTA PO SCH (10:00)
--- NOTE | 2017-01-17 12:06 | PCM.RRTMUL ---
<Radha Medina - Last Filed: 01/17/17 15:06> CRUDE OIL DRIVER Nurses Assessment - Vital Signs Blood Pressure:: 93/61 Pulse Rate:: 61 Respiratory Rate:: 20 Temperature:: 97.4 F I.Reason for CRUDE OIL DRIVER - A) Acute Change in Patient: (Select all that apply): Staff member or family is worried about patient ( witnessed seizure by nurse) - A) Initial Vital Signs: Blood Pressure: 145/90 Pulse Rate: 75 Temperature: 98 F O2 Sat by Pulse Oximetry: 99 Finger Stick Blood Glucose: 89 - B) Neurological Status (Select all that apply): Alert, Oriented, Verbal - Constitutional Appears: Non-toxic - Head Head Exam: ATRAUMATIC, NORMAL INSPECTION, NORMOCEPHALIC - Eyes Eye Exam: EOMI, Normal appearance - Respiratory Exam Respiratory Exam: Clear to Ausculation Bilateral, NORMAL BREATHING PATTERN - Cardiovascular Exam Cardiovascular Exam: REGULAR RHYTHM, RRR. absent: Gallop, Rubs, Murmur - GI/Abdominal Exam GI & Abdominal Exam: Soft, Normal Bowel Sounds. absent: Tenderness - Neurological Exam Neurological Exam: Alert, Awake, Oriented x3 - Extremities Exam Extremities Exam: Full ROM, Normal Inspection. absent: Pedal Edema Plan - A. End of CRUDE OIL DRIVER Vital Signs: Blood Pressure: 145/90 Pulse Rate: 75 Temperature: 98 F O2 Sat by Pulse Oximetry: 99 - B. Assessment of Findings&Treatment Plan CRUDE OIL DRIVER called at 11:48. Patient had 15-20 second witnessed seizure by nurse. Patient was alert and oriented after the rapid response. Patient did not have incontinence of bladder or bowels. Dr. Conner made aware and Ativan 1 mg PRN was added. Dr. Singh made aware and said to give patient 2 mg ativan if another seizure occurs. <Zeinab Lauren V - Last Filed: 01/18/17 00:39> Attending/Attestation - Attestation I have personally seen and examined this patient.: Yes I have fully participated in the care of the patient.: Yes I have reviewed all pertinent clinical information, including history, physical exam and plan: Yes Notes (Text): Responded to #1 CRUDE OIL DRIVER and #2 CRUDE OIL DRIVER Called for witness seizure by clinical partner. Patient only received Phenobarbital and Carbmazapine. Seizure resolved on its own. Patient is pending family to bring other seizure medications. patient has hx of known seizure disorder. Labs reordered to rule out electrolyte deficiencies and sugar within normal limits At the 2nd CRUDE OIL DRIVER, patient's seizure witnessed and patient given Ativan which stopped seizure and make patient sleep but responsive. Resident has spoken to PMD regarding CRUDE OIL DRIVER for patient.
--- NOTE | 2017-01-17 16:45 | CP.PCM.CON ---
History of Present Illness - History of Present Illness History of Present Illness: Ms. Lebron is a 31-year-old woman with a past medical history of schizophrenia and refractory epilepsy (being managed by an epileptologist at [place]), who presented with increasing seizure activity. She did not receive Vimpat since it was not on formulary and had two more seizures today. She was given ativan and has been seizure free since then. She typically has 5 seizures a month despite being on Vimpat, Trileptal and phenobarbatol. When I saw the patient, she was somnolent, but responsive and followed commands appropriately. Review of Systems - Review of Systems Systems not reviewed;Unavailable: Intoxicated Past Patient History - Past Medical History & Family History Past Medical History?: Yes - Past Social History Smoking Status: Never Smoked - CARDIAC Hx Cardiac Disorders: No - PULMONARY Hx Respiratory Disorders: No - NEUROLOGICAL Hx Neurological Disorder: Yes Hx Seizures: Yes - HEENT Hx HEENT Problems: No - RENAL Hx Chronic Kidney Disease: No - ENDOCRINE/METABOLIC Hx Endocrine Disorders: No - HEMATOLOGICAL/ONCOLOGICAL Hx Blood Disorders: No - INTEGUMENTARY Hx Dermatological Problems: No - MUSCULOSKELETAL/RHEUMATOLOGICAL Hx Falls: No - GASTROINTESTINAL Hx Gastrointestinal Disorders: No - GENITOURINARY/GYNECOLOGICAL Hx Genitourinary Disorders: No - PSYCHIATRIC Hx Schizophrenia: Yes Hx Substance Use: No - SURGICAL HISTORY Hx Surgeries: No - ANESTHESIA Hx Anesthesia: No Hx Anesthesia Reactions: No Hx Malignant Hyperthermia: No Has any member of the family had a problem w/ anesthesia?: No Meds Allergies/Adverse Reactions: Allergies Allergy/AdvReac Type Severity Reaction Status Date / Time No Known Allergies Allergy Verified 10/17/16 18:16 - Medications Medications: Current Medications Cephalexin Monohydrate (Keflex) 500 mg PO Q8 [facility] Last Admin: 01/17/17 14:35 Dose: Not Given Docusate Sodium (Colace) 100 mg PO DAILY [facility] Last Admin: 01/17/17 13:35 Dose: 100 mg Home Med (Lacosamide [Vimpat]) 200 mg PO BID [facility] Last Admin: 01/16/17 20:42 Dose: Not Given Home Med (Nuedexta 20-10 Mg Capsule) 1 tab PO DAILY [facility] Lorazepam (Ativan) 1 mg IVP Q6H PRN PRN Reason: Seizure activity Oxcarbazepine (Trileptal) 300 mg PO HS [facility] Last Admin: 01/16/17 22:31 Dose: 300 mg Phenobarbital (Phenobarbital Tab) 64.8 mg PO BID [facility] Last Admin: 01/17/17 10:33 Dose: 64.8 mg Quetiapine Fumarate (Seroquel) 200 mg PO DAILY [facility] Last Admin: 01/17/17 10:34 Dose: 200 mg Physical Exam - Constitutional Appears: Well - Head Exam Head Exam: ATRAUMATIC, NORMAL INSPECTION, NORMOCEPHALIC - Eye Exam Eye Exam: EOMI, Normal appearance, PERRL - ENT Exam ENT Exam: Mucous Membranes Moist, Normal Exam - Neck Exam Neck exam: Positive for: Normal Inspection - Respiratory Exam Respiratory Exam: Clear to Auscultation Bilateral, NORMAL BREATHING PATTERN - Cardiovascular Exam Cardiovascular Exam: REGULAR RHYTHM, +S1, +S2 - GI/Abdominal Exam GI & Abdominal Exam: Normal Bowel Sounds, Soft. absent: Tenderness - Rectal Exam Rectal Exam: Deferred - Extremities Exam Extremities exam: Positive for: normal inspection - Back Exam Back exam: NORMAL INSPECTION - Neurological Exam Neurological exam: Alert, CN II-XII Intact, Normal Gait, Oriented x3, Reflexes Normal Additional comments: No focal deficits. - Psychiatric Exam Additional comments: somnolent - Skin Skin Exam: Dry, Intact, Normal Color, Warm Results - Vital Signs Recent Vital Signs: Last Vital Signs Temp 97.5 F L 01/17/17 16:00 Pulse 51 L 01/17/17 16:00 Resp 20 01/17/17 16:00 BP 119/80 01/17/17 16:00 Pulse Ox 99 01/17/17 16:00 - Labs Result Diagrams: 01/16/17 17:51 01/16/17 17:46 Labs: Laboratory Results - last 24 hr 01/17/17 01/17/17 11:52 14:52 POC Glucose (mg/dL) 89 113 H Assessment & Plan (1) Seizure disorder Assessment and Plan: Continue home medications and discharge home if she does not have any more seizures today. Follow-up with outpatient epileptologist. Status: Chronic Priority: Medium
[2017-01-17 16:59] LABS: BASO % 0.8 % (0.0-2.0); EOS % 0.2 % (0.0-4.0); HEMOGLOBIN 14.2 g/dL (11.0-16.0); LYMPH # 0.8 K/uL (1.0-4.3); LYMPH % 14.6 % (20.0-40.0); MEAN CELL VOLUME 89.1 fL (81.0-99.0); MEAN CORPUSCULAR HEMOGLOBIN 29.4 pg (27.0-31.0); MONO # 0.2 K/uL (0.0-0.8); NEUT # 4.3 K/uL (1.8-7.0); NEUT % 80.4 % (50.0-75.0); RBC 4.83 Mil/uL (3.80-5.20); RED CELL DISTRIBUTION WIDTH 12.5 % (11.5-14.5); WHITE BLOOD COUNT 5.4 K/uL (4.8-10.8)
[2017-01-17 17:05] LABS: ALBUMIN 4.1 g/dL (3.5-5.0)
[2017-01-17 17:07] LABS: GFR AFRICAN-AMERICAN > 60; GFR NON-AFRICAN AMERICAN > 60
[2017-01-17 17:08] LABS: ALB/GLOB RATIO 1.2 (1.0-2.1); ALT/SGPT 27 U/L (9-52); AST/SGOT 21 U/L (14-36); BLOOD UREA NITROGEN 9 mg/dL (7-17); CALCIUM 8.4 mg/dl (8.6-10.4); MAGNESIUM 1.9 mg/dL (1.6-2.3)
--- NOTE | 2017-01-17 21:15 | CP.PCM.DIS ---
Provider - Provider Date of Admission: 01/16/17 20:17 Attending physician: Aristeo Conner MD Hospital Course - Lab Results Lab Results: Most Recent Lab Values WBC 5.4 K/uL (4.8-10.8) 01/17/17 16:52 RBC 4.83 Mil/uL (3.80-5.20) 01/17/17 16:52 Hgb 14.2 g/dL (11.0-16.0) 01/17/17 16:52 Hct 43.1 % (34.0-47.0) 01/17/17 16:52 MCV 89.1 fL (81.0-99.0) 01/17/17 16:52 MCH 29.4 pg (27.0-31.0) 01/17/17 16:52 MCHC 33.0 g/dL (33.0-37.0) 01/17/17 16:52 RDW 12.5 % (11.5-14.5) 01/17/17 16:52 Plt Count 302 K/uL (130-400) 01/17/17 16:52 MPV 7.0 fL (7.2-11.7) L 01/17/17 16:52 Neut % (Auto) 80.4 % (50.0-75.0) H 01/17/17 16:52 Lymph % (Auto) 14.6 % (20.0-40.0) L 01/17/17 16:52 [place] % (Auto) 4.0 % (0.0-10.0) 01/17/17 16:52 Eos % (Auto) 0.2 % (0.0-4.0) 01/17/17 16:52 Baso % (Auto) 0.8 % (0.0-2.0) 01/17/17 16:52 Neut # 4.3 K/uL (1.8-7.0) 01/17/17 16:52 Lymph # 0.8 K/uL (1.0-4.3) L 01/17/17 16:52 [place] # 0.2 K/uL (0.0-0.8) 01/17/17 16:52 Eos # 0.0 K/uL (0.0-0.7) 01/17/17 16:52 Baso # 0.0 K/uL (0.0-0.2) 01/17/17 16:52 Sodium 131 mmol/L (132-148) L 01/17/17 16:52 Potassium 4.0 mmol/L (3.6-5.2) 01/17/17 16:52 Chloride 98 mmol/L (98-107) 01/17/17 16:52 Carbon Dioxide 23 mmol/L (22-30) 01/17/17 16:52 Anion Gap 14 (10-20) 01/17/17 16:52 BUN 9 mg/dL (7-17) 01/17/17 16:52 Creatinine 0.6 MG/DL (0.7-1.2) L 01/17/17 16:52 Est GFR ( Amer) > 60 01/17/17 16:52 Est GFR (Non-Af Amer) > 60 01/17/17 16:52 POC Glucose (mg/dL) 113 mg/dL (65-110) H 01/17/17 14:52 Random Glucose 85 mg/dL (65-105) 01/17/17 16:52 Calcium 8.4 mg/dl (8.6-10.4) L 01/17/17 16:52 Magnesium 1.9 mg/dL (1.6-2.3) 01/17/17 16:52 Total Bilirubin 0.6 mg/dL (0.2-1.3) 01/17/17 16:52 AST 21 U/L (14-36) 01/17/17 16:52 ALT 27 U/L (9-52) 01/17/17 16:52 Alkaline Phosphatase 69 U/L (38-126) 01/17/17 16:52 Total Protein 7.5 g/dL (6.3-8.3) 01/17/17 16:52 Albumin 4.1 g/dL (3.5-5.0) 01/17/17 16:52 Globulin 3.4 gm/dL (2.2-3.9) 01/17/17 16:52 Albumin/Globulin Ratio 1.2 (1.0-2.1) 01/17/17 16:52 Urine Color Straw (YELLOW) 01/16/17 19:25 Urine Clarity Hazy (Clear) 01/16/17 19:25 Urine pH 5.0 (5.0-8.0) 01/16/17 19:25 Ur Specific [place] 1.006 (1.003-1.030) 01/16/17 19:25 Urine Protein Negative mg/dL (NEGATIVE) 01/16/17 19:25 Urine Glucose (UA) Normal mg/dL (Normal) 01/16/17 19:25 Urine Ketones Negative mg/dL (NEGATIVE) 01/16/17 19:25 Urine Blood 3+ (NEGATIVE) H 01/16/17 19:25 Urine Nitrate Negative (NEGATIVE) 01/16/17 19:25 Urine Bilirubin Negative (NEGATIVE) 01/16/17 19:25 Urine Urobilinogen Normal mg/dL (0.2-1.0) 01/16/17 19:25 Ur Leukocyte Esterase 2+ [place]/uL (Negative) H 01/16/17 19:25 Urine WBC (Auto) 14 /hpf (0-5) H 01/16/17 19:25 Urine RBC (Auto) 27 /hpf (0-3) H 01/16/17 19:25 Ur Squamous Epith Cells 5 /hpf (0-5) 01/16/17 19:25 Urine Bacteria Occ (<OCC) H 01/16/17 19:25 Urine HCG, Qual Negative (NEGATIVE) 01/16/17 19:25 Discharge Exam - Head Exam Head Exam: ATRAUMATIC, NORMAL INSPECTION, NORMOCEPHALIC Discharge Plan - Follow Up Plan Condition: IMPROVED Disposition: HOME/ ROUTINE Instructions: Patient Safety in the Hospital (GEN), Epilepsy (DC) Additional Instructions: CONTINUE HOME MEDICATIONS AND FOLLOW UP WITH NEUROLOGIST. Referrals: Porfirio Singh MD [Staff Provider] - Aristeo Conner MD [Staff Provider] -
[2017-01-18 22:30] VITALS: BP 118/78; PULSE 93; TEMP 97.3
--- NOTE | 2017-01-18 22:30 | PCM.RRTMUL ---
BROKERAGE CLERK Nurses Assessment - Vital Signs Blood Pressure:: 119/80 Pulse Rate:: 51 Respiratory Rate:: 20 Temperature:: 97.5 F - A) Initial Vital Signs: Blood Pressure: 118/78 Pulse Rate: 93 Temperature: 97.3 F O2 Sat by Pulse Oximetry: 99 - B) Neurological Status (Select all that apply): Disoriented, Lethargic - Constitutional Appears: Non-toxic - Head Head Exam: ATRAUMATIC, NORMAL INSPECTION, NORMOCEPHALIC - Eyes Eye Exam: EOMI, Normal appearance - Respiratory Exam Respiratory Exam: Clear to Ausculation Bilateral, NORMAL BREATHING PATTERN - Cardiovascular Exam Cardiovascular Exam: REGULAR RHYTHM, RRR - GI/Abdominal Exam GI & Abdominal Exam: Soft, Normal Bowel Sounds - Neurological Exam Neurological Exam: absent: Awake - Extremities Exam Extremities Exam: Normal Inspection Plan - A. End of BROKERAGE CLERK Vital Signs: Blood Pressure: 118/78 Pulse Rate: 93 Temperature: 97.3 F O2 Sat by Pulse Oximetry: 99 - B. Assessment of Findings&Treatment Plan second BROKERAGE CLERK called for patient at 14:51 on 01/17/17 for a witnessed seizure lasting <2 min. Patient was no longer actively seizing when examined. Patient given Ativan 2mg and was very lethargic.
== END 2017-01-17 20:47 | disposition home or self-care (01) ==
LOC: C.ER 16:44 → C.9E 20:17 → C.6T 21:17
PROVIDERS: ADMIT Internal Medicine; ATTEND Internal Medicine
DX: G40.901 Epilepsy, unspecified, not intractable, with status epilepticus (principal); F20.9 Schizophrenia, unspecified